=== PATIENT | female | born 1985 | race Caucasian/White ===

== ENCOUNTER 2021-09-04 13:07 | Inpatient (IN) | payer OTHER ==
[2021-09-04] MEDS ORDERED: NICOTINE 10 MG CARTRIDGE (INHALER) IH PRN (13:50)
[2021-09-04] MEDS ORDERED: MAG HYDROX/AL HYDROX/SIMETH 30 ML UNIT-DOSE CUP PO PRN (13:50)
[2021-09-04] MEDS ORDERED: MENTHOL/PHENOL 1 EACH UD MM PRN (13:50)
[2021-09-04] MEDS ORDERED: chlordiazePOXIDE HCL 25 MG CAPSULE PO PRN (13:50)
[2021-09-04] MEDS ORDERED: MAGNESIUM HYDROX 2400MG/30ML ORAL SUSPENSION 30 ML CUP PO PRN (13:50)
[2021-09-04] MEDS ORDERED: ACETAMINOPHEN 325 MG TABLET (FP) PO PRN (13:50)
[2021-09-04] MEDS ORDERED: BISMUTH SUBSALICYLATE 262 MG/15 ML BTL PO PRN (13:50)
[2021-09-04] MEDS ORDERED: MAGNESIUM CITRATE 300 ML BOTTLE PO PRN (13:50)
[2021-09-04 14:03] VITALS: BMI 24.7
[2021-09-04] MEDS ORDERED: hydrOXYzine PAMOATE 25 MG CAPSULE (FP) PO ONE (15:29)
[2021-09-04] MEDS: hydrOXYzine PAMOATE 25 MG CAPSULE (FP) PO SCH ×3 (15:29→22:24)
[2021-09-04] MEDS: chlordiazePOXIDE HCL 25 MG CAPSULE PO SCH ×2 (18:43→22:23)
[2021-09-04] MEDS: BACITRACIN 0.9 GM PACKET TP SCH (18:43)
[2021-09-04] MEDS: PRENATAL VITAMINS W/ FOLIC ACID TABLET (FP) PO SCH (18:43)
[2021-09-04] MEDS: ACETAMINOPHEN 325 MG TABLET (FP) PO PRN (18:47)
[2021-09-04] MEDS: MELATONIN 5 MG TABLETS PO SCH (22:24)
[2021-09-04] MEDS: THIAMINE HCL 100 MG TABLET (FP) PO SCH (22:24)
[2021-09-05] MEDS: hydrOXYzine PAMOATE 25 MG CAPSULE (FP) PO SCH ×5 (05:24→22:30)
[2021-09-05] MEDS: chlordiazePOXIDE HCL 25 MG CAPSULE PO SCH ×4 (05:25→22:29)
[2021-09-05] MEDS: NICOTINE 14 MG/24 HOURS TOPICAL PATCH TD SCH (10:14)
[2021-09-05] MEDS: BACITRACIN 0.9 GM PACKET TP SCH ×2 (10:15→22:29)
[2021-09-05] MEDS: ACETAMINOPHEN 325 MG TABLET (FP) PO PRN ×2 (10:16→22:29)
[2021-09-05] MEDS: ONDANSETRON *ODT* 4 MG TABLET SL PRN (10:18)
[2021-09-05] MEDS: PRENATAL VITAMINS W/ FOLIC ACID TABLET (FP) PO SCH (10:19)
[2021-09-05 11:45] LABS: HEMATOCRIT 32.9 % (32.4-45.2); HEMOGLOBIN 10.6 GM/dL (10.7-15.3); MCH 29.4 pg (25.7-33.7); MCHC 32.1 g/dl (32.0-36.0); MEAN CELL VOLUME 91.4 fl (80-96); MEAN PLT VOLUME 8.9 fl (7.5-11.1); PLATELET COUNT 131 10^3/uL (134-434); RDW 16.3 % (11.6-15.6); WHITE BLOOD COUNT 2.8 K/mm3 (4.0-10.0)
[2021-09-05 12:17] LABS: CALCIUM 8.5 mg/dL (8.5-10.1)
[2021-09-05 12:18] LABS: ALBUMIN 2.8 g/dl (3.4-5.0); BLOOD UREA NITROGEN 12.7 mg/dL (7-18)
[2021-09-05 12:21] LABS: CREATININE 0.5 mg/dL (0.55-1.3)
[2021-09-05 12:22] LABS: BILIRUBIN,TOTAL 0.4 mg/dL (0.2-1); TOT PROT 5.4 g/dl (6.4-8.2)
[2021-09-05] MEDS: IBUPROFEN 400 MG TABLET (FP) PO PRN (17:00)
[2021-09-05] MEDS: MELATONIN 5 MG TABLETS PO SCH (22:30)
[2021-09-05] MEDS: THIAMINE HCL 100 MG TABLET (FP) PO SCH (22:30)
[2021-09-06] MEDS: IBUPROFEN 400 MG TABLET (FP) PO PRN ×2 (05:16→14:29)
[2021-09-06] MEDS: ONDANSETRON *ODT* 4 MG TABLET SL PRN ×2 (05:16→14:33)
[2021-09-06] MEDS: hydrOXYzine PAMOATE 25 MG CAPSULE (FP) PO SCH ×5 (06:40→22:21)
[2021-09-06] MEDS: chlordiazePOXIDE HCL 25 MG CAPSULE PO SCH ×4 (06:41→22:21)
[2021-09-06] MEDS: NICOTINE 14 MG/24 HOURS TOPICAL PATCH TD SCH (10:41)
[2021-09-06] MEDS: BACITRACIN 0.9 GM PACKET TP SCH ×2 (10:41→22:23)
[2021-09-06] MEDS: ACETAMINOPHEN 325 MG TABLET (FP) PO PRN ×2 (10:42→17:55)
[2021-09-06] MEDS: PRENATAL VITAMINS W/ FOLIC ACID TABLET (FP) PO SCH (10:44)
[2021-09-06] MEDS: METHOCARBAMOL 500 MG TABLET PO PRN ×2 (10:44→17:55)
[2021-09-06] MEDS: MIRTAZAPINE 15 MG TABLET (FP) PO SCH (22:21)
[2021-09-06] MEDS: THIAMINE HCL 100 MG TABLET (FP) PO SCH (22:23)
[2021-09-06] MEDS: MELATONIN 5 MG TABLETS PO SCH (22:23)
[2021-09-07] MEDS ORDERED: chlordiazePOXIDE HCL 10 MG CAPSULE PO PRN
[2021-09-07] MEDS: chlordiazePOXIDE HCL 10 MG CAPSULE PO SCH ×4 (06:04→22:24)
[2021-09-07] MEDS: hydrOXYzine PAMOATE 25 MG CAPSULE (FP) PO SCH ×5 (06:04→22:24)
[2021-09-07] MEDS: ACETAMINOPHEN 325 MG TABLET (FP) PO PRN ×2 (06:05→17:43)
[2021-09-07] MEDS: BACITRACIN 0.9 GM PACKET TP SCH ×2 (10:30→22:30)
[2021-09-07] MEDS: METHOCARBAMOL 500 MG TABLET PO PRN ×2 (10:32→17:42)
[2021-09-07] MEDS: IBUPROFEN 400 MG TABLET (FP) PO PRN (10:32)
[2021-09-07] MEDS: NICOTINE 14 MG/24 HOURS TOPICAL PATCH TD SCH (10:42)
[2021-09-07] MEDS: PRENATAL VITAMINS W/ FOLIC ACID TABLET (FP) PO SCH (10:42)
[2021-09-07] MEDS: MIRTAZAPINE 15 MG TABLET (FP) PO SCH (22:24)
[2021-09-07] MEDS: MELATONIN 5 MG TABLETS PO SCH (22:24)
[2021-09-07] MEDS: THIAMINE HCL 100 MG TABLET (FP) PO SCH (22:24)
[2021-09-08] MEDS: ACETAMINOPHEN 325 MG TABLET (FP) PO PRN ×2 (06:16→17:52)
[2021-09-08] MEDS: chlordiazePOXIDE HCL 10 MG CAPSULE PO SCH ×2 (06:16→17:54)
[2021-09-08] MEDS: METHOCARBAMOL 500 MG TABLET PO PRN ×2 (06:16→17:53)
[2021-09-08] MEDS: hydrOXYzine PAMOATE 25 MG CAPSULE (FP) PO SCH ×5 (06:16→22:24)
[2021-09-08] MEDS: PRENATAL VITAMINS W/ FOLIC ACID TABLET (FP) PO SCH (10:31)
[2021-09-08] MEDS: BACITRACIN 0.9 GM PACKET TP SCH ×2 (10:31→22:23)
[2021-09-08] MEDS: IBUPROFEN 400 MG TABLET (FP) PO PRN ×2 (10:32→22:25)
[2021-09-08] MEDS: NICOTINE 14 MG/24 HOURS TOPICAL PATCH TD SCH (10:34)
[2021-09-08] MEDS: MELATONIN 5 MG TABLETS PO SCH (22:24)
[2021-09-08] MEDS: THIAMINE HCL 100 MG TABLET (FP) PO SCH (22:24)
[2021-09-08] MEDS: MIRTAZAPINE 15 MG TABLET (FP) PO SCH (22:24)
[2021-09-09] MEDS ORDERED: chlordiazePOXIDE HCL 10 MG CAPSULE PO ONE (05:00)
[2021-09-09] MEDS: hydrOXYzine PAMOATE 25 MG CAPSULE (FP) PO SCH ×2 (05:34→10:17)
[2021-09-09 08:56] VITALS: BP 120/80; PULSE 85; TEMP 97.9
[2021-09-09] MEDS: BACITRACIN 0.9 GM PACKET TP SCH (10:17)
[2021-09-09] MEDS: PRENATAL VITAMINS W/ FOLIC ACID TABLET (FP) PO SCH (10:17)
[2021-09-09] MEDS: NICOTINE 14 MG/24 HOURS TOPICAL PATCH TD SCH (10:18)
[2021-09-09] MEDS: METHOCARBAMOL 500 MG TABLET PO PRN (10:20)
== END 2021-09-09 10:54 | disposition other institution (70) | DRG 774 ==
LOC: YASAS 13:07 → Y3N 15:36
PROVIDERS: ADMIT Allergy & Immunology; ATTEND Allergy & Immunology
PROC: HZ2ZZZZ Detoxification Services for Substance Abuse Treatment (ICD-10-PCS; principal; 2021-09-04)
DX: F10.230 Alcohol dependence with withdrawal, uncomplicated (principal); F14.20 Cocaine dependence, uncomplicated; F17.210 Nicotine dependence, cigarettes, uncomplicated; F19.24 Other psychoactive substance dependence with psychoactive substance-induced mood disorder; F32.A Depression, unspecified; F41.9 Anxiety disorder, unspecified; G40.909 Epilepsy, unspecified, not intractable, without status epilepticus; G47.00 Insomnia, unspecified; R74.01 Elevation of levels of liver transaminase levels; R74.8 Abnormal levels of other serum enzymes; Z59.00 Homelessness unspecified; Z56.0 Unemployment, unspecified
CPT/HCPCS: 36415; 73130-TC-LT-FY; 80053; 85027; 86780; 93005; 93010; C9803-CS; Q0162; U0003; U0005